=== PATIENT | female | born 1970 | race Caucasian/White ===

== ENCOUNTER 2016-12-21 21:31 | Emergency (ER) | payer SELFPAY ==
[~2016-12-21] VITALS: Ht 165.1 cm; Wt 68.0 kg
[2016-12-21 21:31] VITALS: BP_SYST 133
--- NOTE | 2016-12-21 21:31 | NUR ---
BIB Officer in custody for medical clearance. Patient to ER bed H to gown for evaluation. Side rails up.
--- NOTE | 2016-12-21 21:32 | NUR ---
Pt brought by master police detective, [email or web address], per [employer] pt was at a patrol car back seat and fell to R side inside the car, pt c/o R shoulder pain 11/29, pt here for medical clearance, VSS, no active bleeding.
--- NOTE | 2016-12-21 21:33 | NUR ---
Dr Nixon at bedside examining patient
[2016-12-21 21:50] VITALS: BP_SYST 128
--- NOTE | 2016-12-21 21:50 | NUR ---
Patient given written and verbal discharge instructions and verbalizes understanding. ER MD discussed with patient the results and treatment provided. Patient in stable condition. ID arm band removed. Patient educated on pain management and to follow up with PMD. Pain Scale 0/10 . Opportunity for questions provided and answered.
== END 2016-12-21 21:50 ==
LOC: SED 21:31
DX: Z02.89 Encounter for other administrative examinations (principal); M79.601 Pain in right arm
CPT/HCPCS: 99283